=== PATIENT | male | born 1995 | race American Indian/Alaskan Native ===

== ENCOUNTER 2017-03-14 18:36 | Emergency (ER) | payer SELFPAY ==
[2017-03-14] MEDS ORDERED: TYLENOL PO ONE (19:25)
--- NOTE | 2017-03-14 20:55 | XRay Report ---
FINAL REPORT PROCEDURE: Left knee. TECHNIQUE: AP and lateral views. HISTORY: Left knee pain. COMPARISON: No prior studies are available for comparison. FINDINGS: The bones appear intact without fracture or dislocation. The joint spaces appear normal. There may be a soft tissue injury inferior to the patella. There is no evidence of a knee effusion. IMPRESSION: Question soft tissue injury. Otherwise normal study.
[2017-03-14] MEDS ORDERED: NORCO 5/325 PO ONE (23:18)
[2017-03-14] MEDS ORDERED: NORCO 5/325 ONE (23:22)
[2017-03-14] MEDS ORDERED: XYLOCAINE 2% INFILTRATI ONE (23:39)
[2017-03-15] MEDS ORDERED: NACL 0.9% IR ONE (00:13)
[2017-03-15] MEDS ORDERED: BOOSTRIX IM ONE (00:13)
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
[2017-03-15] MEDS ORDERED: XYLOCAINE 2% INFILTRATI ONE (00:29)
[2017-03-15 00:39] VITALS: BP 146/89
== END 2017-03-15 00:58 | disposition home or self-care (01) ==
LOC: ED 18:36
DX: S81.012A Laceration without foreign body, left knee, initial encounter (principal); S83.502A Sprain of unspecified cruciate ligament of left knee, initial encounter; V19.9XXA Pedal cyclist (driver) (passenger) injured in unspecified traffic accident, initial encounter; Y93.9 Activity, unspecified; Y92.9 Unspecified place or not applicable; Y99.9 Unspecified external cause status
CPT/HCPCS: 90471; 90715

== ENCOUNTER 2017-04-01 15:31 | Emergency (ER) | payer SELFPAY ==
[2017-04-01 15:58] VITALS: BP 136/69
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
== END 2017-04-01 23:07 | disposition home or self-care (01) ==
LOC: ED 15:31
DX: Z48.02 Encounter for removal of sutures (principal)

== ENCOUNTER 2017-04-11 16:31 | Emergency (ER) | payer SELFPAY ==
[2017-04-11 17:58] LABS: Bilirubin,Urine NEG (Negative); Blood,Urine NEG (Negative); Ketones,Urine NEG (Negative); Leukocyte Esterase,Urine LG (Negative); Mucus,Urine FEW /HPF; Nitrite,Urine NEG (Negative); Protein,Urine <15 mg/dL mg/dL (Negative); Urobilinogen,Urine < 2.0 mg/dL (<2.0)
[2017-04-11 18:01] LABS: WBC,Urine > 182.0 /HPF (0.0-6.0)
[2017-04-11] MEDS ORDERED: ROCEPHIN IM ONE (18:36)
[2017-04-11] MEDS ORDERED: XYLOCAINE 1% MPF 5 mL INFILTRATI ONE (18:36)
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
[2017-04-11] MEDS ORDERED: FLAGYL PO ONE (20:58)
[2017-04-11] MEDS ORDERED: ZITHROMAX PO ONE (20:58)
[2017-04-11 21:26] VITALS: BP 124/75
== END 2017-04-11 21:20 | disposition home or self-care (01) ==
LOC: ED 16:31
DX: N30.90 Cystitis, unspecified without hematuria (principal); R36.9 Urethral discharge, unspecified; R30.0 Dysuria; F17.200 Nicotine dependence, unspecified, uncomplicated; F12.10 Cannabis abuse, uncomplicated
CPT/HCPCS: 81001; 87086; 96372; 99283; J0696